=== PATIENT | male | born 1965 ===

== ENCOUNTER 2018-05-20 08:10 | Outpatient (CLI) | payer OTHER | END 2018-05-20 08:11 | disposition home or self-care (01) | LOC: SONOGRAMA 08:10 | DX: N20.0 Calculus of kidney (principal) ==

== ENCOUNTER 2020-12-03 10:29 | Outpatient (CLI) | payer OTHER | END 2020-12-03 10:37 | disposition home or self-care (01) | LOC: SONOGRAMA 10:29 | PROVIDERS: ATTEND Family Medicine | DX: R22.1 Localized swelling, mass and lump, neck (principal) ==

== ENCOUNTER 2021-10-01 11:16 | Outpatient (CLI) | payer OTHER | END 2021-10-01 11:18 | disposition home or self-care (01) | LOC: SONOGRAMA 11:16 | DX: Z85.51 Personal history of malignant neoplasm of bladder (principal) ==

== ENCOUNTER 2022-10-09 10:41 | Outpatient (CLI) | payer OTHER | END 2022-10-09 10:47 | disposition home or self-care (01) | LOC: SONOGRAMA 10:41 | PROVIDERS: ATTEND Internal Medicine | DX: E04.2 Nontoxic multinodular goiter (principal) ==

== ENCOUNTER 2024-07-14 14:43 | Outpatient (CLI) | payer OTHER | END 2024-07-14 14:49 | disposition home or self-care (01) | LOC: RAD 14:43 | DX: N20.1 Calculus of ureter (principal); N20.0 Calculus of kidney ==